=== PATIENT | male | born 1985 | race African-American/Black ===

== ENCOUNTER 2023-09-17 09:41 | Emergency (ER) | payer OTHER ==
[~2023-09-17] VITALS: Ht 152.4 cm; Wt 104.5 kg
[~2023-09-17 09:41] MED LIST: FLEXERIL 1010 MG/TAB PO
[2023-09-17 09:48] VITALS: TEMP 97.8
[2023-09-17 11:13] LABS: BASO % 0.9 % (0.0-2.0); EOS # 0.2 K/mm3 (0.0-0.7); EOS % 3.7 % (0.0-4.0); GRAN # 2.3 K/mm3 (1.4-6.5); GRAN % 49.5 % (42.2-75.2); HEMATOCRIT 39.7 % (42.0-52.0); HEMOGLOBIN 14.2 g/dl (13.5-18.0); LYMPH # 1.8 K/mm3 (1.2-3.4); LYMPH % 39.4 % (20.0-51.0); MEAN CELL VOLUME 89 fl (80.0-100.0); MEAN CORPUSCULAR HEMOGLOBIN 32 pg (27-31); MEAN CORPUSCULAR HGB CONC 36 g/dl (33.0-37.0); MEAN PLATELET VOLUME 9.1 fl (7.4-10.4); MONO # 0.3 K/mm3 (0.1-0.6); MONO % 6.3 % (1.7-9.3); PLATELET COUNT 277 K/mm3 (130-400); RED BLOOD COUNT 4.48 M/mm3 (4.20-5.60); REDCELL DISTRIBUTION WIDTH-CV 11.9 % (11.5-14.5)
[2023-09-17] MEDS ORDERED: MOBIC15 MG PO (11:14)
[2023-09-17 11:32] VITALS: BP 147/93; PULSE 55
[2023-09-17 11:38] LABS: ERYTHROCYTE SEDIMENTATION RATE 1 mm/hr (0-15)
== END 2023-09-17 11:32 | disposition home or self-care (01) ==
LOC: COL.ER 09:41
PROVIDERS: Family Medicine
DX: M16.11 Unilateral primary osteoarthritis, right hip (principal); F17.210 Nicotine dependence, cigarettes, uncomplicated
CPT/HCPCS: J1885